=== PATIENT | male | born 1965 | race Caucasian/White ===

== ENCOUNTER → 2023-01-04 | Outpatient (CLI) | payer OTHER | LOC: M CARPUL 12:53 | PROVIDERS: ATTEND Registered Nurse | DX: I71.21 Aneurysm of the ascending aorta, without rupture (principal); I27.20 Pulmonary hypertension, unspecified ==

== ENCOUNTER → 2023-12-22 | Outpatient (CLI) | payer OTHER | LOC: M PLAIMG 10:41 | PROVIDERS: ATTEND Registered Nurse | DX: I71.40 Abdominal aortic aneurysm, without rupture, unspecified (principal) ==

== ENCOUNTER → 2024-12-29 | Outpatient (CLI) | payer OTHER | LOC: M RAD 14:26 | PROVIDERS: ATTEND Internal Medicine Pulmonary Disease | DX: F17.218 Nicotine dependence, cigarettes, with other nicotine-induced disorders (principal) ==

== ENCOUNTER → 2025-01-23 | Outpatient (CLI) | payer OTHER | LOC: M SLEEP HO 11:05 | PROVIDERS: ATTEND Internal Medicine Pulmonary Disease | DX: R06.83 Snoring (principal) ==